=== PATIENT | male | born 1975 | race Caucasian/White ===

== ENCOUNTER 2022-07-21 08:15 | Emergency (ER) | payer BC ==
[~2022-07-21] VITALS: Ht 165.1 cm; Wt 102.1 kg
[2022-07-21 08:18] VITALS: BP 140/93
--- NOTE | 2022-07-21 08:24 | NUR ---
pt ambulatory to bed 12
[2022-07-21] MEDS ORDERED: diazePAM 5 MG TAB PO ONE (08:25)
[2022-07-21] MEDS ORDERED: KETOROLAC 30 MG/ML VIAL IM ONE (08:25)
[2022-07-21] MEDS ORDERED: NAPR-54 PO (09:28)
[2022-07-21] MEDS ORDERED: DIAZ5TAB6 PO (09:28)
[2022-07-21 10:05] VITALS: BP 143/79
--- NOTE | 2022-07-21 10:06 | NUR ---
MD spoke with pt and verbalized understanding and will follow up with primary. ACI given and reviewed with pt. Pt a/o x 4, vss, no ss of acute distress, breathing equal and unlabored, speech clear, steady gait witnessed.
--- NOTE | 2022-07-21 10:30 | NUR ---
MD gave order to monitor pts pain before dc. MD notified of no change in pts pain level. MD gave order to hold pt so that he can speak with him.
[2022-07-21] MEDS ORDERED: MORPHINE SULFATE 4 MG/ML SYR IM ONE (10:45)
--- NOTE | 2022-07-21 11:54 | NUR ---
Pt was up for dc earlier but requested to speak with MD at dc. MD ordered pt to be medicated and monitored. Pt now cleared for dc. ACI given and reviewed with pt and family at bedside. Pt is a/o x 4, vss, no ss of acute distress, breathing equal and unlabored, speech clear. Pain is now tolerable according to pt.
[2022-07-22] MEDS ORDERED: CYCL-711 PO (02:31)
== END 2022-07-21 11:50 | disposition home or self-care (01) ==
LOC: MED 08:15
DX: M62.830 Muscle spasm of back (principal); Z79.899 Other long term (current) drug therapy; Z79.1 Long term (current) use of non-steroidal anti-inflammatories (NSAID)
CPT/HCPCS: 96372; 99284; J1885; J2270

== ENCOUNTER 2022-07-22 00:19 | Emergency (ER) | payer BC ==
[~2022-07-22] VITALS: Ht 167.6 cm; Wt 102.1 kg
[~2022-07-22 00:19] MED LIST: DIAZ5TAB6 PO; NAPR-54 PO
[2022-07-22 00:51] VITALS: BP 135/93
--- NOTE | 2022-07-22 01:05 | NUR ---
PT TO [facility]
[2022-07-22] MEDS ORDERED: methocarbamoL 500 MG TAB PO ONE (02:00)
[2022-07-22] MEDS ORDERED: KETOROLAC 30 MG/ML VIAL IM ONE (02:00)
--- NOTE | 2022-07-22 02:10 | NUR ---
PT TO BED 11
[2022-07-22] MEDS ORDERED: CYCL-711 PO (02:31)
[2022-07-22 02:44] VITALS: BP 130/85
--- NOTE | 2022-07-22 02:46 | NUR ---
Patient discharged with v/s stable. Written and verbal after care instructions given and explained. Patient alert, oriented and verbalized understanding of instructions. Ambulatory with steady gait. All questions addressed prior to discharge. ID band removed. Patient advised to follow up with PMD. Rx of FLEXERIL given. Patient educated on indication of medication including possible reaction and side effects. Opportunity to ask questions provided and answered.
== END 2022-07-22 02:42 | disposition home or self-care (01) ==
LOC: MED 00:19
DX: M54.2 Cervicalgia (principal); M62.830 Muscle spasm of back; Z79.899 Other long term (current) drug therapy; Z79.1 Long term (current) use of non-steroidal anti-inflammatories (NSAID)
CPT/HCPCS: 96372; 99283; J1885